=== PATIENT | male | born 1960 | race Hispanic/Latino ===

== ENCOUNTER 2023-02-01 16:15 | Emergency (ER) | payer OTHER ==
[~2023-02-01] VITALS: Ht 180.3 cm; Wt 63.5 kg
[2023-02-01 16:42] VITALS: BP 144/89; PULSE 80; RESP 16; O2SAT 98
[2023-02-01] MEDS ORDERED: IBUPROFEN 600 MG TABLET PO ONE (18:30)
[2023-02-01] MEDS ORDERED: IBUP-2077 PO (19:15)
== END 2023-02-01 20:20 | disposition home or self-care (01) ==
LOC: EDH 16:15
DX: S86.812A Strain of other muscle(s) and tendon(s) at lower leg level, left leg, initial encounter (principal); W18.39XA Other fall on same level, initial encounter; Y93.89 Activity, other specified; Y92.89 Other specified places as the place of occurrence of the external cause; Y99.8 Other external cause status
CPT/HCPCS: 73590